=== PATIENT | female | born 2000 | race Caucasian/White ===

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

== ENCOUNTER 2019-05-24 22:16 | Emergency (ER) | payer OTHER ==
[~2019-05-24] VITALS: Ht 167.6 cm; Wt 75.3 kg
[~2019-05-24 22:16] MED LIST changes: +AMINOPHYLLIN200 MG PO; +SEPTDS PO
== END 2019-05-24 23:58 | disposition home or self-care (01) ==
LOC: ED 22:16
DX: T23.131A Burn of first degree of multiple right fingers (nail), not including thumb, initial encounter (principal); G43.909 Migraine, unspecified, not intractable, without status migrainosus; F17.200 Nicotine dependence, unspecified, uncomplicated; W29.0XXA Contact with powered kitchen appliance, initial encounter; Y93.89 Activity, other specified; Y92.098 Other place in other non-institutional residence as the place of occurrence of the external cause; Y99.8 Other external cause status

== ENCOUNTER 2020-03-31 16:32 | Emergency (ER) | payer OTHER ==
[2020-03-31] MEDS ORDERED: ROBAXIN-750750 MG PO (17:43)
[2020-03-31] MEDS ORDERED: PREDNISONE20 M1 PO (17:43)
== END 2020-03-31 18:39 | disposition home or self-care (01) ==
LOC: ED 16:32
DX: M54.32 Sciatica, left side (principal); G43.909 Migraine, unspecified, not intractable, without status migrainosus

== ENCOUNTER 2020-05-10 03:12 | Emergency (ER) | payer SELFPAY ==
[~2020-05-10] VITALS: Wt 68.0 kg
[~2020-05-10 03:12] MED LIST changes: +PREDNISONE20 M1 PO; +ROBAXIN-750750 MG PO
[2020-05-10 03:44] LABS: BILIRUBIN Negative (Negative); BLOOD 2+ (Negative); COLOR Yellow (Yellow); GLUCOSE Negative (Negative); KETONE Negative (Negative); LEUKO ESTERASE 1+ (Negative); NITRITE Negative (Negative); PH 5.5 (4.5-8.0); UROBILINOGEN 0.2 E.U./dl (0.0-1.0)
[2020-05-10 03:50] LABS: CLARITY Clear (Clear)
[2020-05-10 03:53] LABS: BACTERIA 1+; EPITHELIAL CELLS 16-20; WBC 21-30 wbc/hpf (0-5)
[2020-05-10] MEDS ORDERED: KEFLEX500 M1 PO (04:30)
[2020-05-10] MEDS ORDERED: PYRIDIUM200 M1 PO (04:31)
[2020-05-10] MEDS ORDERED: MACROBID100 M1 PO (04:47)
== END 2020-05-10 04:44 | disposition home or self-care (01) ==
LOC: ED 03:12
PROVIDERS: Emergency Medicine Emergency Medical Services
DX: N39.0 Urinary tract infection, site not specified (principal); R30.0 Dysuria

== ENCOUNTER 2020-09-23 16:57 | Emergency (ER) | payer OTHER ==
[~2020-09-23] VITALS: Ht 167.6 cm; Wt 68.0 kg
[~2020-09-23 16:57] MED LIST changes: +KEFLEX500 M1 PO
[2020-09-23] MEDS ORDERED: PREDNISONE10 MG PO (20:56)
[2020-09-23] MEDS ORDERED: IBU600 M1 PO (20:59)
[2020-09-23] MEDS ORDERED: CYCLOBENZAPRINE5 M3 PO (20:59)
== END 2020-09-23 22:07 | disposition home or self-care (01) ==
LOC: ED 16:57
DX: M54.42 Lumbago with sciatica, left side (principal); G43.909 Migraine, unspecified, not intractable, without status migrainosus; Z79.899 Other long term (current) drug therapy

== ENCOUNTER 2021-03-16 09:36 | Emergency (ER) | payer SELFPAY ==
[~2021-03-16] VITALS: Ht 167.6 cm; Wt 68.0 kg
[~2021-03-16 09:36] MED LIST changes: +CYCLOBENZAPRINE5 M3 PO; +IBU600 M1 PO; +PREDNISONE10 MG PO
== END 2021-03-16 10:35 | disposition home or self-care (01) ==
LOC: ED 09:36
DX: O26.891 Other specified pregnancy related conditions, first trimester (principal); Z3A.01 Less than 8 weeks gestation of pregnancy

== ENCOUNTER → 2022-03-31 | Outpatient (CLI) | payer OTHER ==
[2022-03-31 15:55] LABS: BASO # 0.1 10*3/uL (0.0-0.1); BASO % 0.6 % (0.0-1.0); EOS # 0.2 10*3/uL (0.0-0.4); EOS % 1.9 % (1.0-4.0); HEMATOCRIT 39.6 % (37.0-47.0); LYMPH # 1.7 10*3/uL (1.3-4.4); LYMPH % 21.6 % (27.0-41.0); MEAN CELL VOLUME 76.9 fl (81.0-99.0); MEAN CORPUSCULAR HGB 25.4 pg (27.0-31.0); MEAN CORPUSCULAR HGB CONC 33.1 g/dl (33.0-37.0); MEAN PLATELET VOLUME 11.1 fl (9.6-12.3); MONO # 0.6 10*3/uL (0.1-1.0); MONO % 6.9 % (3.0-9.0); NEUT # 5.5 10*3/uL (2.3-7.9); NEUT % 68.9 % (47.0-73.0); PLATELET COUNT AUTOMATED 256 10*3/uL (130-400); RED BLOOD COUNT 5.15 10*6/uL (4.10-5.10); RED CELL DISTRI WIDTH 13.2 % (0-14.5)
[2022-03-31 16:25] LABS: ALKALINE PHOSPHATASE 88 U/L (45-117); BUN 9 mg/dl (7-24); CHLORIDE 109 mmol/L (98-107); CREATININE 0.81 mg/dL (0.55-1.02); POTASSIUM 4.1 mmol/L (3.5-5.1); SGOT/AST 16 IU/L (3-35); SGPT/ALT 18 U/L (12-78); SODIUM 141 mmol/L (136-145); TOTAL PROTEIN 8.3 gm/dL (6.4-8.2)
== END ==
LOC: LAB 15:10
PROVIDERS: ATTEND Physical Therapist
DX: R10.9 Unspecified abdominal pain (principal)

== ENCOUNTER → 2022-04-04 | Outpatient (CLI) | payer OTHER | END | disposition home or self-care (01) | LOC: US 10:30 | PROVIDERS: ATTEND Physical Therapist | DX: R10.9 Unspecified abdominal pain (principal) ==